=== PATIENT | female | born 1950 | race Caucasian/White ===

== ENCOUNTER 2016-05-01 13:26 | Day surgery (SDC) | payer MEDICARE, MEDICAID ==
[~2016-05-01] VITALS: Ht 157.5 cm; Wt 94.1 kg
[2016-05-01 13:07] VITALS: BP 112/55; PULSE 72; RESP 14; O2SAT 95
[~2016-05-01 13:26] MED LIST: ALBU8.5H2 INHALATION; ASPI81TA3 PO; BECL8.7A6 INHALATION; CHOL200025 PO; DOCU-41 PO; FEXO180T85 PO; GABA-502 PO; Lactated Ringer's 1,000 ML IV ONE; METF500T4 PO; METO25TA6 PO; MOME17SP NS; OMEP20CA11 PO; PARO30TA4 PO; SENN-133 PO
[2016-05-01] MEDS ORDERED: Propofol 10,000 mCg/mL 20 mL Inj ONE (13:27)
[2016-05-01 13:47] VITALS: BP 180/78; PULSE 75; RESP 18; O2SAT 95
[2016-05-01] MEDS ORDERED: SERT50TA PO (13:55)
[2016-05-01] MEDS ORDERED: Lactated Ringer's 1,000 ML IV SCH (14:07)
[2016-05-01 14:42] VITALS: BP 155/83; PULSE 83; RESP 18; O2SAT 95
--- NOTE | 2016-05-01 15:09 | ENDO ---
[address] [address] ENDOSCOPY PROCEDURE PATIENT: LORETTA MONTEZ : 1950 MR#: [id number] ADMIT: 05/01/2016 JOB ID: [id number] DATE OF SERVICE: 05/01/2016 TYPE OF OPERATION: 1. Esophagogastroduodenoscopy with biopsy. 2. Colonoscopy with biopsy. PREOPERATIVE DIAGNOSIS(ES): 1. Epigastric pain. 2. Colorectal cancer screening. POSTOPERATIVE DIAGNOSIS(ES): 1. Mild nonerosive gastritis, status post biopsy. 2. A 3 mm ascending colon polyp removed by cold biopsy forceps. ANESTHESIA: Monitored anesthesia care. COMPLICATIONS: None. BLOOD LOSS: Minimal. DESCRIPTION OF PROCEDURE: After risks and benefits explained to the patient, informed consent was obtained. After anesthesia administered, upper endoscope was then inserted into the mouth, intubating into the esophagus, stomach, second portion of duodenum, and mucosa carefully examined. After procedure was done, the scope withdrawn and procedure terminated. Colonoscope was then inserted from the rectum to the cecum. Mucosa carefully examined. Prep of the patient was fair. After the procedure was done, the scope withdrawn and procedure terminated. FINDINGS: Upon inspection of the esophagus, esophagus was normal without masses, ulcers, or lesions. Z-line located 40 cm from incisors. Upon entering the stomach, there was mild nonerosive gastritis that was seen. No polyps or masses or lesions were seen. Retroflexion was normal. Duodenal bulb, first and second portions were normal. Biopsies taken from antrum and body of stomach. Upon inspection of the anus, no masses, hemorrhoids, ulcers, or fissures that were seen. Throughout the entire examination, there was a 3 mm ascending colon polyp, removed by cold biopsy forceps. No other polyps or masses were seen. Retroflexion was normal. IMPRESSION: 1. A 3 mm ascending colon polyp, removed by cold biopsy forceps. 2. Mild nonerosive gastritis, status post biopsy. RECOMMENDATIONS: Await pathology results. If tubular adenoma, then next colonoscopy will be in five years.
[2016-05-01] MEDS ORDERED: HYDROmorphone 1 mg/mL Inj IVPUSH PRN (15:25)
--- NOTE | 2016-05-01 15:28 | PCM.ANEP1 ---
Post Anesthesia Phase 1 PACU Phase 1 Assessment Vital Signs Vital Signs Date Time Temp Pulse Resp B/P Pulse Ox O2 Delivery O2 Flow Rate FiO2 05/01/16 14:42 36.1 83 18 155/83 95 Room Air 05/01/16 13:47 75 18 180/78 95 Room Air Anesthetic Administered: MAC Level of Alertness: Drowsy, not talking DEAL's with Equal Strength: Yes Pain: Yes (SEVERE MIGRAINE) Nausea or Vomiting: No Oxygen Delivery: Room Air Lungs: Normal Air Movement Dermatome Level: Full Sensation Summary PATIENT HAS A SEVERE MIGRAINE AFTER HER PROCEDURE. SHE REPORTS A HISTORY OF MIGRAINES AND THIS FEELS EXACTLY LIKE THE LAST ONE. I GAVE 1 GM IV TYLENOL WITHOUT MUCH EFFECT. THE PATIENT REFUSED TO GO TO THE ED FOR A SCAN OR FURTHER EVALUATION. SHE REPORTS THAT DILAUDID IS THE ONLY THING THAT HELPS. SHE BEGAN FEELING MUCH BETTER SOON I TOLD HER THAT I WOULD ORDER DILAUDID BUT IF IT DIDN'T GET BETTER SHE WOULD NEED TO GO TO THE ED. Edmundo Alvarez MD May 01, 2016 15:28
--- NOTE | 2016-05-01 15:34 | PCM.HPANE ---
Patient Data Surgeon Admitting Provider: Attending Provider:Thierry Mosley MD Primary Care Physician:Malcolm Mcdaniel MD Other Provider:Janet Baiingham Anesthesia Reason for Visit Epigastric Pain Ht/WT & BMI Body Mass Index Allergies Coded Allergies: dihydroergotamine (Verified Allergy, Severe, S, 04/19/14) iodine (Verified Allergy, Severe, 04/19/14) ketorolac (Verified Allergy, Severe, (home med: asa 81 mg without allergy) , 04/19/14) metoclopramide (Verified Allergy, Severe, 04/19/14) ondansetron (Verified Allergy, Severe, 04/17/14) Contrast Media (Verified Allergy, Unknown, 04/17/14) diphenhydramine (Verified Allergy, Unknown, 04/30/16) indomethacin (Verified Allergy, Unknown, 04/30/16) pregabalin (Verified Allergy, Unknown, 04/30/16) tromethamine (Verified Allergy, Unknown, 04/30/16) valproic acid (Verified Allergy, Unknown, 04/30/16) Past Anesthesia History Anesthesia History: Denies:: Anesthesia Reactions Diabetes History Hx Diabetes?: Yes (diet controlled) MRSA MRSA: No Medications Active Scripts Aspirin Chew 81 Mg Chew81 Mg PO DAILY 30 Days Prov:Thierry Field DO 09/23/15 Reported Medications Sertraline HCl (Zoloft)50 Mg Rqkert032 Mg PO DAILY Ref 0 05/01/16 Cholecalciferol (Vitamin D3) (Vitamin D3)2,000 Unit Tablet2,000 Unit PO DAILY 04/30/16 Sennosides (Senna)8.6 Mg Tablet8.6 Mg PO DAILY PRN For Constipation 04/30/16 Beclomethasone Dipropionate (Qvar)8.7 Gm Aer.w.adap2 Puff INHALATION BID #8.7 GM 04/30/16 Albuterol HFA (Proair HFA)8.5 Gm Hfa.aer.ad2 Puffs INHALATION Q4H #1 INHALER 04/30/16 Omeprazole 20 Mg Capsule.dr20 Mg PO DAILY Ref 0 04/30/16 Mometasone Furoate (Nasonex)17 Gm [place].pump2 Hooks NS DAILY #1 PKG Ref 0 04/30/16 Metformin 500 Mg Jdbgqo227 Mg PO DAILY Ref 0 04/30/16 Docusate Sodium (Colace)100 Mg Ukfpxtw691 Mg PO DAILY PRN For Constipation Ref 0 04/30/16 Fexofenadine (Marlen Allergy)180 Mg Qhkfck285 Mg PO DAILY Ref 0 04/30/16 Metoprolol Tartrate 25 Mg Uodmdw81 Mg PO BID 30 Days Ref 0 04/30/16 Gabapentin 300 Mg Lthomyr221 Mg PO TID Ref 0 12/01/15 Discontinued Reported Medications Paroxetine 30 Mg Yyqgrz80 Mg PO HS 30 Days Ref 0 12/01/15 Discontinued Scripts Prednisone (PredniSONE)20 Mg Velokb80 Mg PO DAILY #21 TABLET Ref 0 Prov:Dean Ewing MD 12/01/15 Dextromethorphan Polistirex (12-Hour Cough Relief)30 Mg/5 Ml Jenn.er.12h60 Mg PO BID #240 ML Prov:Dean Ewing MD 12/01/15 Metoprolol Tartrate 25 Mg Jikgto12.5 Mg PO BID 30 Days Prov:Thierry Field DO 09/23/15 History History of ENT Problems?: No HEENT History: Positive for:: Sinus Problem (Deviated septum repair/ frequent sinus infections) Denies:: Cataracts Dysphagia Hx of Heart Problems?: Yes Cardiovascular History: Positive for:: Hypertension (started lisinipril today? ) Denies:: Cardiac Surgery Chest Pain Congestive Heart Failure Edema Heart Murmur Irregular Heartbeat Pacemaker Thrombophlebitis Hx of Respiratory Problem?: Yes Respiratory History: Positive for:: Asthma ( well controlled) Denies:: COPD Chest Surgery Dyspnea Emphysema Hemoptysis Pneumonia Tuberculosis Hx Neurologic Problems?: Yes Neurological History: Positive for:: Headaches Denies:: Alzheimer's Disease CVA Dementia Dizziness Parkinson's Disease Seizures Hx of GI Problems?: No Gastrointestinal History: Denies:: Diverticulitis Gastroesphageal Reflux Gastrointestinal Bleeding Heartburn Hepatitis Hiatal Hernia Rectal Bleeding Hx of Problems?: Yes Genitourinary History: Positive for:: Kidney Stones Denies:: HX of Hemodialysis Urinary Tract Infection HX of Peritoneal Dialysis: No Female Hx: Positive for:: Endometriosis Pelvic Inflammatory Denies:: Currently Problems with Breasts? 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) Denies:: Joint Replacement Musculoskeletal Trauma Hx of Psycho/Social Problems?: Yes Psycho Social History: Positive for:: Anxiety Hx Depression Suicide Attempt (last time 2001) Denies:: Bipolar Disorder Hx Surgeries?: Yes (appy, tonsils, gall bladder, bladder, hysterectomy) Hx Any Other Health Problems?: Yes Other History: Positive for:: Endocrine Disease Hospitalization Denies:: Cancer Thyroid Disease History Blood Transfusions: Denies:: Blood Transfuse Reaction Blood Transfusions Hx Diabetes: Yes (diet controlled) Hx Alcohol Use: NoHx Substance Use: Yes (HEROIN) Smoking Status: Never Smoker Have You Smoked inLast 12 mo: No Stop/Bang Risk Assessment Category Category 1A: Patient has history of documented sleep apnea, and HAS NOT received any narcotic, sedative or anesthesia administration during this stay. Category 1B: Patient has history of documented sleep apnea, and HAS received any narcotic , sedative or anesthesia administration during this stay Category 2: Patient has SUSPECTED Obstructive Sleep Apnea, and HAS received any narcotic , sedative or anesthesia administration during this stay. Category 3: Patient has SUSPECTED Obstructive Sleep Apnea and HAS NOT received narcotic, sedative or anesthesia administration during this stay. Category 4: Outpatient in Procedural Areas with known sleep apnea or who screen positive for High Risk via the STOP/BANG questionnaire. Exam Exam General Appearance: Alert, Oriented X3, Cooperative, No Acute Distress, Other ( reports mild migraine MORAN, but still wants to proceed with the procedure. She says fluids will probably help.) HEENT/AIRWAY: MP 2 Lungs: Clear to Auscultation, Normal Air Movement Heart: Exam Unremarkable, Regular Rate/Rhythm, No Murmurs/Rubs/Gallops Plan Impression Patient chart reviewed, patient interviewed and anesthestic plan with risks, benefits, and alternatives discussed, and informed consent obtained. NPO Status: MIDNIGHT ASA Physical Status: ASA3 Severe Disease (BMI 38) Anesthetic Plan: MAC Bene/Risks/Altern/Consents: Yes HP Complete Prior to Induction: Yes Edmundo Alvarez MD May 01, 2016 07:27
--- NOTE | 2016-05-01 15:35 | PCM.ANEP2 ---
Post Anesthesia Evaluation ASA/CMS Post Anesthesia VS in Patient's Normal Range?: Yes Resp Stable; Airway Patent?: Yes CV Function & Hydration Stable: Yes Mental Status Recovered?: Yes Pain control Satisfactory?: Yes N/V Control Satisfactory?: Yes Edmundo Alvarez MD May 01, 2016 15:35
[2016-05-01 16:00] VITALS: BP 199/114; PULSE 76; RESP 16; O2SAT 96
[2016-05-01] MEDS: HYDROmorphone 1 mg/mL Inj ONE ×2 (16:00→16:09)
[2016-05-01 16:10] VITALS: BP 182/100; PULSE 75; RESP 16; O2SAT 95
[2016-05-01 16:20] VITALS: BP 166/87; PULSE 72; RESP 16; O2SAT 96
--- NOTE | 2016-05-05 11:32 | PATH ---
SURGICAL PATHOLOGY Attending Physician:Thierry Mosley MD CASE STATUS: Signed Out PATIENT NAME: LORETTA MONTEZ PID: [id number] : 1950 DATE COLLECTED:05/01/2016 00:00 SPECIMEN: 1: Stomach, Antrum, Biopsy 2: Gastric, Biopsy 3: Colon, Biopsy CLINICAL HISTORY: 1). ANTRUM BIOPSY 2). GASTRIC BODY BIOPSY 3). ASCENDING COLON POLYP FINAL DIAGNOSIS: 1.ANTRUM BIOPSY: MILD TO MODERATE CHRONIC GASTRITIS INVOLVING ANTRAL MUCOSA. Negative for evidence of Helicobacter. Negative for intestinal metaplasia. Negative for dysplasia and malignancy. 2.GASTRIC BODY BIOPSY: MILD TO MODERATE CHRONIC GASTRITIS INVOLVING FUNDIC MUCOSA. Negative for evidence of Helicobacter. Negative for intestinal metaplasia. Negative for dysplasia and malignancy. 3.ASCENDING COLON POLYP: TUBULAR ADENOMA INVOLVING BOTH BIOPSY FRAGMENTS. ICD10 CODE K29.70 GROSS DESCRIPTION: The specimen is received in three formalin filled container is labeled with the patient's name. 1). The specimen is sublabeled "antrum" and consists of a 0.4 x 0.4 x 0.3 CM portion of tissue which is entirely submitted in cassette 1A. 2). The specimen is sublabeled "gastric body" and consists of 3 portions of tissue which aggregate to 0.3 x 0.3 x 0.2 CM. The specimen is entirely submitted in cassette 2A. 3). The specimen is sublabeled "ascending colon polyp" and consists of 2 portions of tissue which aggregate to 0.3 x 0.3 x 0.3 CM. The specimen is entirely submitted in cassette 3A. 05/02/2016 [facility] MICRO DESCRIPTION: See diagnosis. ICD-9 CODES: CPT CODES: 1: 35526 2: 37744 3: 15890 Electronically Signed Out Timur Buthcer MD [facility] Pathology [facility] [address], [place] [address] Technical component performed at [facility], [facility] [address], [place], [address]
== END 2016-05-01 23:59 | disposition home or self-care (01) ==
LOC: END 13:26
PROVIDERS: ATTEND Internal Medicine Gastroenterology
DX: Z12.11 Encounter for screening for malignant neoplasm of colon (principal); Z80.0 Family history of malignant neoplasm of digestive organs; D12.2 Benign neoplasm of ascending colon; K29.50 Unspecified chronic gastritis without bleeding; R10.13 Epigastric pain; E11.9 Type 2 diabetes mellitus without complications; I25.2 Old myocardial infarction; I10 Essential (primary) hypertension; J45.909 Unspecified asthma, uncomplicated; R68.81 Early satiety; F43.12 Post-traumatic stress disorder, chronic; F15.10 Other stimulant abuse, uncomplicated; F11.10 Opioid abuse, uncomplicated; Z79.84 Long term (current) use of oral hypoglycemic drugs; Z79.82 Long term (current) use of aspirin
CPT/HCPCS: 43239; 45380; 88305; J0131; J1170; J7120

== ENCOUNTER 2016-06-18 10:39 | Emergency (ER) | payer MEDICAID, MEDICARE ==
[~2016-06-18] VITALS: Ht 157.5 cm; Wt 90.9 kg
[~2016-06-18 10:39] MED LIST changes: -Lactated Ringer's 1,000 ML IV ONE; -PARO30TA4 PO; +SERT50TA PO
[2016-06-18 10:41] VITALS: BP 149/84; PULSE 76; RESP 10; O2SAT 96
--- NOTE | 2016-06-18 12:30 | ED.REPORT ---
HPI-Rash / Abscess Date of Service Jun 18, 2016 ED Provider: Sukumar,Ed History of Present Illness: abscess on left buttock, inject there yesterday. moises is primary care. mcdaniel called in withdrawal meds per patient Nursing Notes Stated Complaint: ABSESS ON BUTTOCKS Chief Complaint: Skin Rash/Abscess Nursing Notes Reviewed: Yes Allergies: Coded Allergies: dihydroergotamine (Verified Allergy, Severe, S, 04/19/14) iodine (Verified Allergy, Severe, 04/19/14) ketorolac (Verified Allergy, Severe, (home med: asa 81 mg without allergy) , 04/19/14) metoclopramide (Verified Allergy, Severe, 04/19/14) ondansetron (Verified Allergy, Severe, 04/17/14) Contrast Media (Verified Allergy, Unknown, 04/17/14) diphenhydramine (Verified Allergy, Unknown, 04/30/16) indomethacin (Verified Allergy, Unknown, 04/30/16) pregabalin (Verified Allergy, Unknown, 04/30/16) tromethamine (Verified Allergy, Unknown, 04/30/16) valproic acid (Verified Allergy, Unknown, 04/30/16) Scheduled Albuterol HFA (Proair HFA) 8.5 Gm Hfa.aer.ad 2 PUFFS INHALATION Q4H Aspirin Chew (Aspirin Chew) 81 Mg Chew 81 MG PO DAILY Beclomethasone Dipropionate (Qvar) 8.7 Gm Aer.w.adap 2 PUFF INHALATION BID Cholecalciferol (Vitamin D3) (Vitamin D3) 2,000 Unit Tablet 2,000 UNIT PO DAILY Fexofenadine (Marlen Allergy) 180 Mg Tablet 180 MG PO DAILY Gabapentin (Gabapentin) 300 Mg Capsule 300 MG PO TID Metformin (Metformin) 500 Mg Tablet 500 MG PO DAILY Metoprolol Tartrate (Metoprolol Tartrate) 25 Mg Tablet 25 MG PO BID Mometasone Furoate (Nasonex) 17 Gm [place].pump 2 SPRAY NS DAILY Omeprazole (Omeprazole) 20 Mg Capsule.dr 20 MG PO DAILY Sertraline HCl (Zoloft) 50 Mg Tablet 100 MG PO DAILY Scheduled PRN Docusate Sodium (Colace) 100 Mg Capsule 200 MG PO DAILY PRN PRN For Constipation Sennosides (Senna) 8.6 Mg Tablet 8.6 MG PO DAILY PRN PRN For Constipation General Time Seen by MD: 12:29 Chief Complaint Abscess Hx Obtained From: Patient Onset Occurred: 3 days ago Past Medical History Past Medical History Fibromyalgia. MRSA. Chronic HAs. Opiate dependence IV Drug use Asthma DM HTN Stroke Dementia Depression Past Surgical History Deviated septum repair. Bladder surgery Appendectomy Cholecystectomy Hysterectomy Tonsillectomy Family History Multiple polysubstance abuse, depression, suicide Smoking History Never Smoker Social History does heroin 06/18/2016 Alcohol Use: Denies alcohol use Drug Use: IV drugs, Meth, Other Occupation lives by self in apartment with dog 06/18/2016 Ambulatory Status Independent Review of Systems Basic Review of Systems : No dysuria, No frequency Psychiatric: Normal thought content Physical Exam Initial Vital Signs Vital Signs (First) Date Time Temp Pulse Resp B/P Pulse Ox O2 Delivery O2 Flow Rate FiO2 06/18/16 10:41 36.5 76 10 149/84 96 Room Air Initial VS: Reviewed, Vital signs normal Head / Eyes: Atraumatic, Normocephalic, PERRL ENT: Mucous membranes moist, Conjunctiva normal, No scleral icterus Neck: Supple, Non-tender, Full range of motion Respiratory: Breath sounds normal, Clear to auscultation, No respiratory distress Cardiovascular: Regular rate & rhythm, Heart sounds normal, Intact distal pulses Abdomen / GI: Soft, Non-tender, No guarding, No rebound, No distention Back: No CVA tenderness Lymphatic: No lymphadenopathy Extremities: Vascular intact, Neuro intact, No swelling, No tenderness Neurologic: Alert, Oriented, Nonfocal Psychiatric: Mood/affect normal, Behavior normal, Normal thought content General/Constitutional: Awake, Alert, No acute distress, Well appearing, Well developed, Well hydrated, Well nourished, Cooperative, Not toxic appearing patient is lying in bed comfortable texting on her cell Rash / Lesion Notes: abscess on left buttock. Center of abscess shows denueded skin. Procedures Incision & Drainage Abscess I & D Abscess: left buttocks Time: 12:50 Procedure Performed by: [facility] Consent / Setup / Site Prep: Informed consent provided, Consent from patient , Hand hygiene observed Skin Preparation Agent: Betadine Local Anesthesia: Lidocaine 1%, 4cc, 27g needle Incised Abscess with Scalpel: #11 Pus Drained: Medium, Purulent discharge Irrigation: Copious Post-Procedure / Complications: Packing placed, Culture obtained, Gram stain ordered, Dressing applied, No complications, Condition improved, Tolerated procedure well, Patient stable Re-Eval/Medical Decision Med Decision/Clinical Course 66 year old presents for abscess on left buttocks. Patient is known IVDA. Site is opened with moderate amount of discharge out. Wound is packed and covered. Patient leaves before antibiotics and update on tdap can be provided. Discharge & Departure Impression: Primary Impression: Abscess Additional Impression: Substance abuse Disposition: Home Patient Instructions: Abscess (ED), Abscess Incision and Drainage (ED) Additional Instructions: The abscess has been opened with a large amount of discharge expressed. Please return on Wednesday for a wound recheck. You have been updated on your tdap today. Start bactrim in the am and pm for 7 days. Use ibuprofen 800 mg 3 times a day for 3 days to decrease the swelling and discomfort. Please follow with primary care as needed. Referrals: Malcolm Mcdaniel MD (PCP) EDSupervising Provider for APC: Brien Hernandez MD copies to: Malcolm Mcdaniel MD, Sue ARNP Jun 18, 2016 12:30
--- NOTE | 2016-06-18 12:30 | ED.REPORT ---
HPI-Rash / Abscess Date of Service Jun 18, 2016 ED Provider: Alfredo Fernandez MD Nursing Notes Stated Complaint: ABSESS ON BUTTOCKS Chief Complaint: Skin Rash/Abscess Allergies: Coded Allergies: dihydroergotamine (Verified Allergy, Severe, S, 04/19/14) iodine (Verified Allergy, Severe, 04/19/14) ketorolac (Verified Allergy, Severe, (home med: asa 81 mg without allergy) , 04/19/14) metoclopramide (Verified Allergy, Severe, 04/19/14) ondansetron (Verified Allergy, Severe, 04/17/14) Contrast Media (Verified Allergy, Unknown, 04/17/14) diphenhydramine (Verified Allergy, Unknown, 04/30/16) indomethacin (Verified Allergy, Unknown, 04/30/16) pregabalin (Verified Allergy, Unknown, 04/30/16) tromethamine (Verified Allergy, Unknown, 04/30/16) valproic acid (Verified Allergy, Unknown, 04/30/16) Scheduled Albuterol HFA (Proair HFA) 8.5 Gm Hfa.aer.ad 2 PUFFS INHALATION Q4H Aspirin Chew (Aspirin Chew) 81 Mg Chew 81 MG PO DAILY Beclomethasone Dipropionate (Qvar) 8.7 Gm Aer.w.adap 2 PUFF INHALATION BID Cholecalciferol (Vitamin D3) (Vitamin D3) 2,000 Unit Tablet 2,000 UNIT PO DAILY Fexofenadine (Marlen Allergy) 180 Mg Tablet 180 MG PO DAILY Gabapentin (Gabapentin) 300 Mg Capsule 300 MG PO TID Metformin (Metformin) 500 Mg Tablet 500 MG PO DAILY Metoprolol Tartrate (Metoprolol Tartrate) 25 Mg Tablet 25 MG PO BID Mometasone Furoate (Nasonex) 17 Gm [place].pump 2 SPRAY NS DAILY Omeprazole (Omeprazole) 20 Mg Capsule.dr 20 MG PO DAILY Sertraline HCl (Zoloft) 50 Mg Tablet 100 MG PO DAILY Scheduled PRN Docusate Sodium (Colace) 100 Mg Capsule 200 MG PO DAILY PRN PRN For Constipation Sennosides (Senna) 8.6 Mg Tablet 8.6 MG PO DAILY PRN PRN For Constipation General Time Seen by MD: 12:29 Past Medical History Past Medical History Fibromyalgia. MRSA. Chronic HAs. Opiate dependence IV Drug use Asthma DM HTN Stroke Dementia Depression Past Surgical History Deviated septum repair. Bladder surgery Appendectomy Cholecystectomy Hysterectomy Tonsillectomy Family History Multiple polysubstance abuse, depression, suicide Smoking History Never Smoker Social History Alcohol Use: Denies alcohol use Drug Use: IV drugs, Meth, Other Occupation lives by self at hotel with dog Ambulatory Status Independent Physical Exam Initial Vital Signs Vital Signs (First) Date Time Temp Pulse Resp B/P Pulse Ox O2 Delivery O2 Flow Rate FiO2 06/18/16 10:41 36.5 76 10 149/84 96 Room Air Discharge & Departure Referrals: Malcolm Mcdaniel MD (PCP) Alfredo Fernandez MD Jun 18, 2016 12:30
[2016-06-18] MEDS ORDERED: TdaP Vaccine 0.5 mL Inj IM ONE (13:05)
== END 2016-06-18 13:19 | disposition home or self-care (01) ==
LOC: SED 10:39
DX: L02.31 Cutaneous abscess of buttock (principal); F19.10 Other psychoactive substance abuse, uncomplicated; J45.909 Unspecified asthma, uncomplicated; E11.59 Type 2 diabetes mellitus with other circulatory complications; I10 Essential (primary) hypertension; M79.7 Fibromyalgia; Z86.73 Personal history of transient ischemic attack (TIA), and cerebral infarction without residual deficits; Z79.82 Long term (current) use of aspirin; Z79.84 Long term (current) use of oral hypoglycemic drugs; Z88.8 Allergy status to other drugs, medicaments and biological substances; Z91.041 Radiographic dye allergy status

== ENCOUNTER 2016-08-12 22:00 | Emergency (ER) | payer MEDICARE, MEDICAID ==
[~2016-08-12] VITALS: Ht 157.5 cm; Wt 77.3 kg
[2016-08-12 22:05] VITALS: BP 142/82; PULSE 70; RESP 16; O2SAT 94
--- NOTE | 2016-08-12 22:08 | ED.REPORT ---
HPI-Rash / Abscess Date of Service August 12, 2016 ED Provider: Dr. Carmelo Bhatia M.D. A 66 year old female with a medical history including IV drug use, opiate dependence, MRSA, DM, hypertension, dementia, and abscess presents to the ED reporting bilateral buttock abscesses onset more than a week ago, both in areas where the patient injected heroin. The left abscess is draining and the right is not. They are both painful. The patient denies other symptoms currently. She last used heroin at 1600 today. The patient was seen at [facility] this morning and received a prescription for Suboxone which she plans to fill tomorrow. The patient has been on Suboxone in the past. Nursing Notes Stated Complaint: ABSCESS Nursing Notes Reviewed: Yes Allergies: Coded Allergies: dihydroergotamine (Verified Allergy, Severe, S, 04/19/14) iodine (Verified Allergy, Severe, 04/19/14) ketorolac (Verified Allergy, Severe, (home med: asa 81 mg without allergy) , 04/19/14) metoclopramide (Verified Allergy, Severe, 04/19/14) ondansetron (Verified Allergy, Severe, 04/17/14) Contrast Media (Verified Allergy, Unknown, 04/17/14) diphenhydramine (Verified Allergy, Unknown, 04/30/16) indomethacin (Verified Allergy, Unknown, 04/30/16) pregabalin (Verified Allergy, Unknown, 04/30/16) tromethamine (Verified Allergy, Unknown, 04/30/16) valproic acid (Verified Allergy, Unknown, 04/30/16) Scheduled Albuterol HFA (Proair HFA) 8.5 Gm Hfa.aer.ad 2 PUFFS INHALATION Q4H Aspirin Chew (Aspirin Chew) 81 Mg Chew 81 MG PO DAILY Beclomethasone Dipropionate (Qvar) 8.7 Gm Aer.w.adap 2 PUFF INHALATION BID Cholecalciferol (Vitamin D3) (Vitamin D3) 2,000 Unit Tablet 2,000 UNIT PO DAILY Fexofenadine (Marlen Allergy) 180 Mg Tablet 180 MG PO DAILY Gabapentin (Gabapentin) 300 Mg Capsule 300 MG PO TID Metformin (Metformin) 500 Mg Tablet 500 MG PO DAILY Metoprolol Tartrate (Metoprolol Tartrate) 25 Mg Tablet 25 MG PO BID Mometasone Furoate (Nasonex) 17 Gm [place].pump 2 SPRAY NS DAILY Omeprazole (Omeprazole) 20 Mg Capsule.dr 20 MG PO DAILY Sertraline HCl (Zoloft) 50 Mg Tablet 100 MG PO DAILY Scheduled PRN Docusate Sodium (Colace) 100 Mg Capsule 200 MG PO DAILY PRN PRN For Constipation Sennosides (Senna) 8.6 Mg Tablet 8.6 MG PO DAILY PRN PRN For Constipation General Time Seen by MD: 22:13 Chief Complaint Abscess Hx Obtained From: Patient Arrived By: Walk-in Onset Occurred: More than a week ago... Symptom Duration: Since onset Location: : Buttock (Bilateral) Quality: Painful Severity: Current: Moderate Severity: Maximum: Moderate Pertinent Negative: Relieved by nothing Related History: Reports: MRSA Recent Healthcare: Recent doctor visit Similar Sx Previous: Yes Past Medical History Past Medical History Fibromyalgia MRSA Chronic HAs Opiate dependence, previously on prescribed pain medications (for 20yrs) then heroin IV Drug use Asthma DM HTN Stroke Dementia Depression Abscess Past Surgical History Deviated septum repair. Bladder surgery Appendectomy Cholecystectomy Hysterectomy Tonsillectomy Family History Multiple polysubstance abuse, depression, suicide Smoking History Never Smoker Social History Does heroin 06/18/2016 Alcohol Use: Denies alcohol use Drug Use: IV drugs, Meth, Other Occupation lives by self in apartment with dog 06/18/2016 Ambulatory Status Independent Review of Systems Review of Systems Note: + Painful bilateral buttock abscesses Constitutional: Denies: Fever Respiratory: Denies: Non-productive cough, Shortness of breath GI: Denies: Diarrhea, Vomiting Musculoskeletal: Reports: Back pain Complete sys rev & neg: except as marked. Physical Exam Initial Vital Signs Vital Signs (First) Date Time Temp Pulse Resp B/P Pulse Ox O2 Delivery O2 Flow Rate FiO2 08/12/16 22:05 37.7 70 16 142/82 94 Room Air Initial VS: Reviewed, Vital signs normal Head / Eyes: Atraumatic, Normocephalic ENT: Conjunctiva normal, No scleral icterus Neck: Supple, Full range of motion Respiratory: Breath sounds normal, Clear to auscultation, No respiratory distress Neurologic: Alert, Oriented, Nonfocal Psychiatric: Mood/affect normal, Behavior normal, Normal thought content General/Constitutional: Awake, Alert Skin: Warm, Dry Abscess Notes: Indurated area of right lateral hip with central area of fluctuance. Surrounding scarring and old areas of induration without erythema or tenderness. Wound on left lateral hip, healing by secondary intention without palpable abscess cavity, tenderness, or induration. Cardiovascular: Heart rate NL, Regular rhythm, Heart sounds NL Procedures Incision & Drainage Abscess Time: 22:42 Procedure Performed by: ED physician Consent / Setup / Site Prep: Consent from patient, Time-out performed, Hand hygiene observed, Stand sterile technique, Sterile drapes applied Location of Abscess: Right buttock Skin Preparation Agent: Other (Dermal Wound Cleanser) Local Anesthesia: Lidocaine w epi 1% Incised Abscess with Scalpel: #11 Pus Drained: Small, Purulent discharge, Bloody Irrigation: Yes Post-Procedure / Complications: Packing placed, Dressing applied, No complications, Condition improved, Tolerated procedure well, Patient stable Re-Eval/Medical Decision Med Decision/Clinical Course 66-year-old female who has been injecting heroin for the last 4 years. She was seen earlier today by me at [facility] and will be starting Suboxone in the morning. She was sent here by me because of abscess in her hips. The abscess of the left hip appears to be healing well by secondary intent. The abscess of the right hip was indeed impact. She was placed on trimethoprim sulfamethoxazole. I will be following her closely at [facility]. Source of Hx: Old records Re-Evaluation/Progress : Time of Eval: 22:42 Patient Status: Condition improved Re-Evaluation/Progress Note: I&D performed. Discussed with patient physical exam findings, diagnosis, and plan for discharge. Follow-up and return to the ER instructions given. Patient agrees with plan for care and all questions were addressed. Counseled Regarding: Diagnosis, Need for follow-up, When/why to return to ED Discharge & Departure Impression: Primary Impression: Abscess of buttock, right Additional Impression: Opioid use disorder, moderate, dependence Disposition: Home Discharge Condition All VS Reviewed: Yes Condition: Improved Patient Instructions: Abscess (ED) Additional Instructions: Thank you for entrusting us with your care. Your right abscess was incised and drained today. Trimethoprim sulfamethoxazole DS (Bactrim, Septra, one by mouth twice a day for 10 days, #20 dispensed. Follow-up with your doctor in 2-3 days for packing removal and wound check. Return to the ER with any new or worsening symptoms. Start your Suboxone 24 hours after your last use, tomorrow evening. See me at [facility] as scheduled. Referrals: Malcolm Mcdaniel MD (PCP) Scribe Attestation Portions of this note were transcribed by Olesya Anderson. I, Dr. Bhatia, personally performed the history, physical exam, and medical decision-making; I reviewed and confirmed the accuracy of the information in the transcribed note. Signed by: Vishnu Rand, 08/12/2016, 23:35 copies to: Malcolm Mcdaniel MD, Howard L MD August 12, 2016 22:08 OLESYA ANDERSON August 12, 2016 22:23
[2016-08-12] MEDS ORDERED: Buprenorphine 2 mg SL Tablet SL ONE (22:10)
[2016-08-13] MEDS ORDERED: _Trimethoprim-Sulfa 160/800 mg Tablet PO SCH (08:30)
== END 2016-08-12 23:10 | disposition home or self-care (01) ==
LOC: SED 22:00
DX: L02.31 Cutaneous abscess of buttock (principal); F11.29 Opioid dependence with unspecified opioid-induced disorder; J45.909 Unspecified asthma, uncomplicated; I10 Essential (primary) hypertension; E11.9 Type 2 diabetes mellitus without complications; M79.7 Fibromyalgia; F03.90 Unspecified dementia, unspecified severity, without behavioral disturbance, psychotic disturbance, mood disturbance, and anxiety; F32.9 Major depressive disorder, single episode, unspecified; Z86.73 Personal history of transient ischemic attack (TIA), and cerebral infarction without residual deficits; Z86.14 Personal history of Methicillin resistant Staphylococcus aureus infection; Z79.82 Long term (current) use of aspirin; Z79.84 Long term (current) use of oral hypoglycemic drugs; Z88.8 Allergy status to other drugs, medicaments and biological substances; Z91.041 Radiographic dye allergy status